=== PATIENT | male | born 1995 | race African-American/Black ===

== ENCOUNTER 2020-12-26 16:24 | Emergency (ER) | payer OTHER ==
[~2020-12-26] VITALS: Ht 167.6 cm; Wt 99.8 kg
[2020-12-26 16:28] VITALS: TEMP 98
[2020-12-26 18:00] VITALS: BP 155/91
== END 2020-12-26 18:35 | disposition home or self-care (01) ==
LOC: ED 16:24
PROC: 0HQ1XZZ Repair Face Skin, External Approach (ICD-10-PCS; principal; 2020-12-26)
DX: S01.412A Laceration without foreign body of left cheek and temporomandibular area, initial encounter (principal); S00.83XA Contusion of other part of head, initial encounter; X58.XXXA Exposure to other specified factors, initial encounter; Y92.89 Other specified places as the place of occurrence of the external cause
CPT/HCPCS: 90471; 90715; 96365; 96375; 99284; J0360; J0690; J2270; J2405; J7040

== ENCOUNTER 2021-01-06 11:54 | Emergency (ER) | payer OTHER ==
[~2021-01-06] VITALS: Ht 167.6 cm; Wt 99.8 kg
[2021-01-06 11:58] VITALS: TEMP 97.4
[2021-01-06 12:10] VITALS: BP 145/91
== END 2021-01-06 12:15 | disposition home or self-care (01) ==
LOC: ED 11:54
DX: Z48.02 Encounter for removal of sutures (principal)